=== PATIENT | female | born 1940 | race Caucasian/White ===

== ENCOUNTER 2019-06-04 08:03 | Day surgery (SDC) | payer MEDICARE, OTHER ==
[2019-06-04] MEDS ORDERED: PROPOFOL 200 MG/20 ML BOTTLE IV ONE (08:04)
[2019-06-04] MEDS ORDERED: SEVOFLURANE 250 ML BOTTLE IH ONE (08:04)
[2019-06-04] MEDS ORDERED: VECURONIUM BROMIDE 10 MG VIAL IV ONE (08:04)
[2019-06-04] MEDS ORDERED: NEOSTIGMINE METHYLSULFATE 10 MG/10 ML VIAL IM ONE (08:04)
[2019-06-04] MEDS ORDERED: IV NORMAL SALINE 1000 ML BAG IV ONE (08:04)
[2019-06-04] MEDS ORDERED: EPHEDRINE SULFATE 50 MG/ML AMPUL IM ONE (08:04)
[2019-06-04] MEDS ORDERED: IRR STERIL WATER FOR IRR 1000 ML BOTTLE IR ONE (08:04)
[2019-06-04] MEDS ORDERED: SUCCINYLCHOLINE CHLORIDE 200 MG/10 ML VIAL IV ONE (08:04)
[2019-06-04] MEDS ORDERED: PHENYLEPHRINE 10 MG/1 ML VIAL IV ONE (08:04)
[2019-06-04] MEDS ORDERED: CEFAZOLIN 1 G VIAL IM ONE (08:04)
[2019-06-04] MEDS ORDERED: LIDOCAINE-MPF 2% 5 ML VIAL IJ ONE (08:04)
[2019-06-04] MEDS ORDERED: GLYCOPYRROLATE 0.2 MG/ML VIAL IJ ONE (08:04)
[2019-06-04 08:56] LABS: BASOPHILS # (AUTO) 0.1 K/uL (0.0-8.0); BASOPHILS % (AUTO) 0.7 % (0.0-2.0); EOSINOPHILS # (AUTO) 0.1 K/uL (0.0-0.7); EOSINOPHILS % (AUTO) 1.5 % (0.0-7.0); HEMATOCRIT 38.8 % (31.2-41.9); HEMOGLOBIN 12.7 g/dL (10.9-14.3); LYMPHOCYTES % (AUTO) 27.2 % (20.5-51.5); MEAN CORPUSCULAR HEMOGLOBIN 27.3 uug (24.7-32.8); MEAN CORPUSCULAR HGB CONC 33 g/dL (32.3-35.6); MEAN CORPUSCULAR VOLUME 83.4 fL (75.5-95.3); MONOCYTES # (AUTO) 0.6 K/uL (2.0-10.0); MONOCYTES % (AUTO) 7.4 % (0.0-11.0); NEUTROPHILS # (AUTO) 4.7 K/uL (1.8-8.9); NEUTROPHILS % (AUTO) 63.2 % (38.5-71.5); PLATELET COUNT (AUTO) 226 K/uL (179-408); RED BLOOD CELL COUNT(AUTO) 4.65 MIL/uL (3.63-4.92); WHITE BLOOD COUNT (AUTO) 7.5 K/uL (3.8-11.8)
[2019-06-04 08:57] LABS: *BLOOD, URINE NEGATIVE (NEGATIVE); *COLOR,URINE YELLOW (YELLOW); *KETONES,URINE NEGATIVE (NEGATIVE); *UROBILINOGEN,URINE 0.2 E.U./dl (NORMAL); LEUKOCYTE ESTERASE ,URINE NEGATIVE (NEGATIVE); NITRITE, URINE NEGATIVE (NEGATIVE); PH,URINE 5.5 (5.0-8.0); UGLUCOSE NEGATIVE (NEGATIVE)
[2019-06-04 09:01] LABS: *BILIRUBIN,URIN 1+ (NEGATIVE); *CLARITY,URINE HAZY (CLEAR)
[2019-06-04 09:02] LABS: CREATININE 1.3 mg/dL (0.6-1.3); POTASSIUM 4.3 mmol/L (3.5-5.1)
[2019-06-04 09:08] LABS: RBC,URINE 0-3 /HPF (0-3)
[2019-06-04 09:09] LABS: BACTERIA,URINE FEW /HPF (NONE SEEN); SQUAMOUS EPITHELIAL CELL,UR MODERATE /HPF (NONE SEEN)
[2019-06-04 09:12] LABS: MUCUS,URINE FEW /LPF (0-FEW)
[2019-06-04] MEDS ORDERED: EPINEPHRINE INJ ONE (09:39)
[2019-06-04] MEDS ORDERED: LIDOCAINE HCL INJ ONE (09:39)
[2019-06-04] MEDS ORDERED: BUPIVACAINE PF 0.5% 30 ML VIAL ONE (09:39)
[2019-06-04] MEDS ORDERED: LIDOCAINE 1%-EPI 1:100,000 20 ML VIAL ONE (09:42)
[2019-06-04] MEDS ORDERED: ETOMIDATE 20 MG/10 ML VIAL ONE (10:19)
[2019-06-04] MEDS ORDERED: FENTANYL CITRATE 100 MCG/2 ML AMPUL ONE (10:19)
[2019-06-04] MEDS ORDERED: PROPOFOL 200 MG/20 ML BOTTLE ONE (10:19)
[2019-06-04] MEDS ORDERED: MIDAZOLAM HCL 2 MG/2 ML VIAL ONE (10:21)
[2019-06-04] MEDS ORDERED: SEVOFLURANE 250 ML BOTTLE ONE (10:54)
== END 2019-06-04 13:45 | disposition home health service (06) ==
LOC: DS 08:03
PROVIDERS: ATTEND Surgery
DX: K62.5 Hemorrhage of anus and rectum (principal); K60.1 Chronic anal fissure; K62.89 Other specified diseases of anus and rectum; K64.4 Residual hemorrhoidal skin tags; K57.30 Diverticulosis of large intestine without perforation or abscess without bleeding; I10 Essential (primary) hypertension; E03.9 Hypothyroidism, unspecified; E11.9 Type 2 diabetes mellitus without complications; M19.90 Unspecified osteoarthritis, unspecified site; F32.9 Major depressive disorder, single episode, unspecified; F41.9 Anxiety disorder, unspecified; Z90.49 Acquired absence of other specified parts of digestive tract; Z98.890 Other specified postprocedural states; Z79.899 Other long term (current) drug therapy; Z79.82 Long term (current) use of aspirin
CPT/HCPCS: 36415; 71045; 85025; 85730; 87086; A4217; A4649; A4663; J0330; J0690; J2250; J2370; J2710; J3010; J3490; J7030